=== PATIENT | female | born 1950 | race Caucasian/White ===

== ENCOUNTER 2018-07-24 13:09 | Observation (INO) ==
--- NOTE | 2018-07-24 13:39 | Diag Imaging Result Doc PS360 ---
CT HEAD W/O CONTRAST - 07/24/2018 INDICATION: stroke like symptoms COMPARISON: None FINDINGS: There is an area of old encephalomalacia at the superior left cerebellar hemisphere. No intracranial mass or hemorrhage. There is some very mild periventricular white matter chronic microvascular disease in the cerebral hemispheres, mainly in the parietal lobes. The skull is intact. The sinuses are clear. IMPRESSION: No acute process. This exam was performed using automated exposure control, adjustment of mA or kV according to patient size, and/or use of iterative reconstruction technique Electronically signed by Bryon Cabral 07/24/2018 1:36 PM
[2018-07-24 13:48] LABS: URINE SOURCE CLEAN CATCH
[2018-07-24 13:54] LABS: BILIRUBIN URINE NEGATIVE (NEGATIVE); BLOOD URINE NEGATIVE (NEGATIVE); COLOR YELLOW; GLUCOSE URINE NEGATIVE (NEGATIVE); KETONE URINE NEGATIVE (NEGATIVE); LEUKOCYTES URINE LARGE (NEGATIVE); NITRITE URINE NEGATIVE (NEGATIVE); PH URINE 5.5; PROTEIN URINE NEGATIVE (NEGATIVE); TURBIDITY URINE CLEAR (CLEAR); UROBILINOGEN URINE NORMAL (NORMAL)
[2018-07-24 13:56] LABS: UR EPITHELIAL CELLS <10 /HPF (<10); URINE BACTERIA NEGATIVE /HPF; URINE RBC <10 /HPF (<10); URINE WBC 20-40 /HPF (<10)
[2018-07-24 13:58] LABS: BASO# 0.06 X1000 (0.0-0.2); BASO% 0.7 % (0.0-0.8); EOS% 3.6 % (0.0-10.0); HEMATOCRIT 37.9 % (37.0-47.0); HEMOGLOBIN 13.2 g/dL (12.0-16.0); IMM GRAN# 0.02 X1000 (0.0-0.04); IMM GRAN% 0.2 % (0.0-0.5); LYMPH% 33.9 % (20.5-51.1); MCH 31.7 PG (27-31); MCHC 34.8 g/dL (33-37); MCV 91.1 FL (81-99); MONO# 0.82 X1000 (0.11-0.59); MONO% 9.9 % (1.7-9.3); MPV 10.7 FL (7.4-10.4); NEUT# 4.25 X1000 (1.4-6.5); NEUT% 51.7 % (42.2-75.2); PLT 238 X1000 (130-400); RBC 4.16 XMIL (4.2-5.4); RDW 12.4 % (11.5-14.5); WBC 8.25 X1000 (4.8-10.8)
[2018-07-24 14:12] LABS: INR 0.92; PROTIME 13.1 Seconds (11.0-16.0)
[2018-07-24 14:22] LABS: ALB/GLOB RATIO 1.6; ALBUMIN 3.9 g/dL (3.5-5.0); CALCIUM 8.7 mg/dL (8.8-10.2); POTASSIUM 3.6 mmol/L (3.5-5.1); TOTAL BILIRUBIN 0.19 mg/dL (0.20-1.00); TOTAL PROTEIN 6.3 g/dL (6.3-8.3)
[2018-07-24] MEDS ORDERED: ROCEPHIN 1 GM in NS 50 ML IV ONE (15:07)
--- NOTE | 2018-07-24 15:24 | PROVIDER DOCUMENTATION ---
This chart was entered by Chrissie Oliveros Scribe, acting as scribe for Mando Burden MD. HPI-Neurological Disorder - General Chief Complaint: Stroke-Like Symptoms Stated Complaint: stroke like symptoms Time Seen by Provider: 07/24/18 13:16 Source: patient, EMS Unable to obtain history due to:: urgency Allergies/Adverse Reactions: Patient Allergies Allergy/AdvReac Type Severity Reaction Status Date / Time aspirin AdvReac Verified 07/24/18 15:13 - History of Present Illness-Neuro Nature of Presenting Problem: 67 yowf presents to the ed via ems with c/o acute onset at 1200 noon of dizziness, nausea and BRUSH and per ems pt had mild weakness in rt hand but pt denies this sx. on exam pt is back to baseline and denies all sx Headache Location: reports: global Severity: reports: mild Onset/Duration: reports: this afternoon (1200pm) Timing: reports: gone now Context: denies: impaired speech, facial droop Character of Altered Mental Status: reports: N/A Any recent trauma/injury?: reports: none Character of Deficits: reports: new weakness. denies: altered sensation, vision problem/glaucoma, impaired speech, impaired swallowing New weakness or altered sensation location:: reports: RUE Cognitive Baseline: alert, oriented x3 Gait Baseline: walks without assistance Associated Symptoms: reports: headache, dizziness, nausea, weakness. denies: decreased ability to walk or stand, neck/back pain, fatigue, fever/chills, vomiting, vision changes Similar Symptoms Previously?: No Recently seen or treated by another doctor?: No Review of Systems - Adult - REVIEW OF SYSTEMS - ADULT Constitutional: denies: chills, fever Eyes: denies: blurred vision, double vision Ears, Nose, Mouth & Throat: reports: no symptoms reported Cardiovascular: denies: chest pain, palpitations Respiratory: denies: cough, shortness of breath, wheezing Gastrointestinal: reports: nausea. denies: abdominal pain, diarrhea, vomiting Genitourinary: reports: no symptoms reported Musculoskeletal: reports: muscle weakness (rt hand). denies: back pain, neck pain Integumentary: reports: no symptoms reported Neurological: reports: see HPI, dizziness/vertigo, headache/migraines. denies: ataxia, loss of balance, numbness, paresthesia, seizure, slurred speech, syncope , tremors Psychiatric: reports: no symptoms reported Endocrine: reports: no symptoms reported Hematologic/Lymphatic: reports: no symptoms reported Allergic/Immunologic: reports: no symptoms reported All Other Systems: Reviewed and Negative Past History - Adult - PAST MEDICAL HISTORY-ADULT Review of Records: reports: Old Records Reviewed, Nursing Assessment Review, Medications Reviewed, Social history reviewed & non-contributory. Major Childhood Illnesses: reports: denies history Cardiovascular: reports: HTN Respiratory: reports: COPD Gastrointestinal: reports: GERD Obstetrical/Gynecological: reports: denies history Genitourinary: reports: denies history Musculoskeletal: reports: arthritis, chronic pain, intervertebral disc disease Neurological: reports: denies history Psychiatric: reports: denies history Endocrine/Immune: reports: denies history Other Conditions: reports: denies history - PRIOR SURGERIES/PROCEDURES Surgical/Procedure History: reports: reviewed, not pertinent - IMMUNIZATION STATUS Childhood Immunizations: See Nurse Assessment Flu Vaccine: See Nurse Assessment - FAMILY HISTORY Family History: reviewed, not pertinent - SOCIAL HISTORY Smoking: cigarettes, less than 1 pack/day Provider spent 3-5 mins advising pt. on dangers of tobacco.: Discussed manners to quit use, and f/u contacts for add'l counseling. Substance Use: denies Living Situation: family Physical Exam- Neurological - Physical Exam-Neuro Initial Vital Signs Reviewed: Yes General Appearance: appears well, alert, no apparent distress Eye Exam: bilateral eye: normal inspection, PERRL, EOMI HENMT: normocephalic/atraumatic, moist mucous membranes, normal ENT inspection Head Injury: no evidence of injury Neck: non-tender, full range of motion, supple, normal inspection Respiratory: chest non-tender, lungs clear, normal breath sounds Cardiovascular: normal peripheral pulses, regular rate, rhythm Abdominal Exam: normal bowel sounds, non tender, soft Lymphatic: no adenopathy Extremity: normal range of motion, non-tender, normal gait, normal inspection, no pedal edema, no calf tenderness, normal capillary refill, 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: normal hearing, normal speech, PERRL Coordination/Gait: normal finger to nose, normal gait Motor/Sensory: no motor deficit, no sensory deficit, no pronator drift, negative Babinski's sign 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, grossly normal, no motor/sensory deficits Integumentary: normal color, normal turgor, warm/dry Psych/Mental Status: normal mood/affect, normal thought content, normal thought process, oriented x 3 - Glascow Coma Scale Best Eye Response: (4) open spontaneously Best Verbal Response: (5) oriented Best Motor Response: (6) obeys commands Total Glascow Score: 15 Progress - PLAN OF CARE/RESULTS Progress/Plan/Lab Results: Laboratory Results - last 24 hr 07/24/18 07/24/18 07/24/18 13:20 13:25 13:25 WBC 8.25 RBC 4.16 L Hgb 13.2 Hct 37.9 MCV 91.1 MCH 31.7 H MCHC 34.8 RDW Std Deviation 12.4 Plt Count 238 MPV 10.7 H Immature Gran % (Auto) 0.2 Neut % (Auto) 51.7 Lymph % (Auto) 33.9 [place] % (Auto) 9.9 H Eos % (Auto) 3.6 Baso % (Auto) 0.7 Immature Gran # (Auto) 0.02 Neut # (Auto) 4.25 Lymph # (Auto) 2.80 [place] # (Auto) 0.82 H Eos # (Auto) 0.30 Baso # (Auto) 0.06 PT INR PTT (Actin FS) Sodium 135 L Potassium 3.6 Chloride 103 Carbon Dioxide 23 L Anion Gap 9 BUN 10 Creatinine 1.0 H Estimated GFR/1.73 m2 55 BUN/Creatinine Ratio 10 Glucose 94 Calculated Osmolality 269 Calcium 8.7 L Total Bilirubin 0.19 L AST 12 ALT 8 L Alkaline Phosphatase 76 Total Protein 6.3 Albumin 3.9 Globulin 2.4 Albumin/Globulin Ratio 1.6 Urine Source CLEAN CATCH Urine Color YELLOW Urine Turbidity CLEAR Urine pH 5.5 Ur Specific [place] 1.000 Urine Protein NEGATIVE Ur Glucose (Stick) NEGATIVE Ur Ketones (Stick) NEGATIVE Urine Blood NEGATIVE Urine Nitrite NEGATIVE Urine Bilirubin NEGATIVE Urobilinogen Dipstick NORMAL Urine Leukocytes LARGE A Urine WBC (Auto) 20-40 A Urine RBC (Auto) <10 U Epithel Cells (Auto) <10 Urine Bacteria (Auto) NEGATIVE 07/24/18 13:25 WBC RBC Hgb Hct MCV MCH MCHC RDW Std Deviation Plt Count MPV Immature Gran % (Auto) Neut % (Auto) Lymph % (Auto) [place] % (Auto) Eos % (Auto) Baso % (Auto) Immature Gran # (Auto) Neut # (Auto) Lymph # (Auto) [place] # (Auto) Eos # (Auto) Baso # (Auto) PT 13.1 INR 0.92 PTT (Actin FS) 32.0 Sodium Potassium Chloride Carbon Dioxide Anion Gap BUN Creatinine Estimated GFR/1.73 m2 BUN/Creatinine Ratio Glucose Calculated Osmolality Calcium Total Bilirubin AST ALT Alkaline Phosphatase Total Protein Albumin Globulin Albumin/Globulin Ratio Urine Source Urine Color Urine Turbidity Urine pH Ur Specific [place] Urine Protein Ur Glucose (Stick) Ur Ketones (Stick) Urine Blood Urine Nitrite Urine Bilirubin Urobilinogen Dipstick Urine Leukocytes Urine WBC (Auto) Urine RBC (Auto) U Epithel Cells (Auto) Urine Bacteria (Auto) Orders Category Date Time Status CT HEAD W/O CONTRAST [CT] Stat Exams 07/24/18 13:04 Completed CBC WITH ELECTRONIC DIFF [HEME] Stat Lab 07/24/18 13:25 Completed COMPREHENSIVE METABOLIC PANEL [CHEM] Stat Lab 07/24/18 13:25 Completed PROTIME WITH INR [COAG] Stat Lab 07/24/18 13:25 Completed PTT [COAG] Stat Lab 07/24/18 13:25 Completed UA [URINALYSIS] [URINALYSIS] Stat Lab 07/24/18 13:20 Completed CefTRIAXONE [Rocephin] 1 gm Med 07/24/18 15:07 Active 0.9% Sodium Chloride Inj [Ns] 50 ml IV NOW No TPA given due to all sx resolved. Result Diagrams: 07/24/18 13:25 07/24/18 13:25 - REASSESSMENT Reassessment #1 Time Reassessed: 13:55 Status: improving Reassessment Comment: all sx gone, pt is back to baseline - CT/MRI 1 CT Study: Head Impression: See EMR Report (CT HEAD W/O CONTRAST - 07/24/2018 INDICATION: stroke like symptoms COMPARISON: None FINDINGS: There is an area of old encephalomalacia at the superior left cerebellar hemisphere. No intracranial mass or hemorrhage. There is some very mild periventricular white matter chronic microvascular disease in the cerebral hemispheres, mainly in the parietal lobes. The skull is intact. The sinuses are clear. IMPRESSION: No acute process. This exam was performed using automated exposure control, adjustment of mA or kV according to patient size, and/or use of iterative reconstruction technique Electronically signed by Bryon Cabral 07/24/2018 1: 36 PM 07/24/18 1336 Interpreting Physician: Bryon Cabral MD Dictated Date/Time: 07/24/18 1334 cc: Mando Burden MD;) - CONSULTS/PCP/HOSPITALIST Notification #1 *Consult/PCP/Hospitalist*: hospitalist dr gann Time Discussed: 15:19 Reason/Comments: TIA/UTI Consult Disposition: Admit Departure - Departure Date of Disposition Decision: 07/24/18 Time of Disposition Decision: 15:06 DIAGNOSIS: TIA (transient ischemic attack), Tobacco use disorder UTI (urinary tract infection) Qualifiers: Urinary tract infection type: site unspecified Hematuria presence: without hematuria Qualified Code(s): N39.0 - Urinary tract infection, site not specified Disposition: ADMITTED INPATIENT 09 Certified Medical Emergency: Emergent Condition: Stable Additional Freetext Instructions: ED Follow Up Instructions: You have been treated by a care provider in the Emergency Department. These instructions are being provided to you so you can have an understanding of how to care for yourself upon discharge. Upon discharge from the Emergency Department, you are responsible for making arrangements for follow-up care by a physician of your choice. Take all prescribed medications as directed. Return to the Emergency Department immediately for any new or worsening symptoms. You may call the Physician Referral phone number at [phone] to obtain a list of Physicians who are taking new patients. Referrals and Follow-Ups: None,PCP [Primary Care Provider] - - Critical Care Note This patient required my direct & personal management of CC.: Yes Total Time (mins): 39 Critical Care Statement: This patient required my direct personal management to treat or rule out processes, the absence of which, could potentiallly result in sudden, clinically significant life or limb threatening deterioration. Attestation - Physician/ KODY Attestation Patient care was provided by Advanced Practice Provider:: No The physician spent face to face time with patient:: Yes Advanced Practice Provider documentation review:: Supervising physician onsite and consulted in the evaluation and care of this patient. The physician did have a face to face encounter with the patient. - NIH Stroke Scale NIH Type: Initial Evaluation Level of Consciousness: 0-Alert LOC Questions (ask month and age): 0-Answers Both Correctly LOC Commands (ask to open & close eyes;make a fist, let go): 0-Obeys Both Correctly Best Gaze (horizontal eye movement): 0-Normal Visual (use finger movement, counting or visual threat): 0-No Visual Loss Facial Palsy (show teeth or raise eyebrows & close eyes tght: 0-Symmetrical Movement Motor Function-left arm: 0-Normal Motor Function-right arm: 0-Normal Motor Function-left le-Normal Motor Function-right le-Normal Limb Ataxia(izoube-gggz-mghekg, or heel to michael): 0-No Ataxia Sensory(pin prick to face,arms,trunk,legs-compare side/side): 0-No Ataxia Best Language(name item/read sentence.Ex-Down to Earth): 0-No Aphasia Dysarthria(Pt read words or say words Ex.Mama,Tip-Top,Thanks: 0-Normal Articulation Extinction and Inattention: 0-Normal NIH Total Score: 0 Modified Deandre Score Criteria: 0-no symptoms This chart was documented by the indicated scribe, (Chrissie Oliveros, [place]) and accurately reflects the services I performed and decisions made by me, Mando Burden MD, as attested by the provider's signature.
[2018-07-24] MEDS ORDERED: NORCO-5 PO ONE (15:26)
[2018-07-24] MEDS ORDERED: NICODERM PATCH ONE (15:53)
[2018-07-24] MEDS ORDERED: NS 1,000 ML IV ONE (16:12)
[2018-07-24 17:06] LABS: TSH 2.73 uIUmL (0.27-4.20)
[2018-07-24] MEDS ORDERED: ZOFRAN IV PRN (17:41)
--- NOTE | 2018-07-24 17:59 | HISTORY AND PHYSICAL ---
PRIMARY CARE PHYSICIAN: None. CHIEF COMPLAINT: Dizziness. HISTORY OF PRESENT ILLNESS: Ms. Gallardo is a 67-year-old female with a history of nicotine dependence, gastric ulcer status post gastric perforation requiring surgical repair, medical noncompliance, and marijuana dependence, who presents with acute onset of dizziness, ataxia and blurred vision. This began at around noon. She was sitting on her couch when she began to experience dizziness and double vision. Family there were next to her state that she was very disoriented but not confused. She was not having any slurred speech or having any unilateral weakness. Ambulance was called, and she was brought here. Episode lasted for a total of around 30 minutes. She denies any symptoms currently and denies any recent chest pain or shortness of breath. No nausea or vomiting. No diarrhea. She has chronic abdominal pain secondary to gastric ulcer, and she takes 4 Advil a day for chronic back pain despite having a history of gastric perforation. When she got here, head CT was done, and it did show an area of old encephalomalacia in the superior left cerebral hemisphere. Otherwise, there were no acute issues. She is hemodynamically stable, and her laboratory data is essentially unremarkable. She will be admitted for observation status. PAST MEDICAL HISTORY: 1. Gastric ulcers, status post perforation and surgical repair. 2. Question of old stroke. 3. History of hypertension, untreated. 4. Nicotine dependence. 5. Marijuana dependence. PAST SURGICAL HISTORY: She has had a gastric perforation repair and a D and C. SOCIAL HISTORY: She smokes 2 packs of cigarettes a day. Denies alcohol use. She smokes marijuana about 1 time per week. She denies any other illicit drug use. FAMILY HISTORY: Noncontributory. REVIEW OF SYSTEMS: A 14-point review of systems is obtained and found to be negative with the exception of the HPI. HOME MEDICATIONS: Advil 400 mg p.o. b.i.d. ALLERGIES: Aspirin causes stomach upset. PHYSICAL EXAMINATION: VITAL SIGNS: Blood pressure is 150/70, heart rate 54, respiratory rate is 18, O2 saturation is 96% on room air. Temperature is 98.1. GENERAL: This is a chronically ill, frail, bordering on cachectic appearing 67-year-old female lying in the hospital bed in no acute distress. NEUROLOGICAL: She is awake, alert and oriented. She follows commands without focal deficit. HEENT: Head is atraumatic and normocephalic. Pupils are equal, round and reactive to light. Oral mucosa is moist. NECK: Trachea is midline. There is no JVD or carotid bruit. CHEST: Clear to auscultation. Diminished at the bases. CARDIOVASCULAR: Bradycardic, regular. S1 and S2 noted. There is a 2/6 murmur noted as well. GASTROINTESTINAL: Soft, nondistended and nontender. Bowel sounds are active. EXTREMITIES: No edema. Pulses 1+ bilaterally. DIAGNOSTIC DATA: Head CT shows chronic changes. Nothing acute. Chest x-ray is pending as is an EKG. WBC is 8.25, hemoglobin 13.2, hematocrit 37.9, platelet count 238. INR is 0.92. Sodium is 135, potassium 3.6, chloride 103, CO2 is 23, anion gap 9, BUN is 10, creatinine 1. Glucose 94. Calcium 8.7. Total bilirubin is 0.19, AST is 12, ALT is 8, alkaline phosphatase 76. UA shows large leukocytes and 20 to 40 WBCs. ASSESSMENT AND PLAN: 1. Transient ischemic attack. All symptoms have resolved at this time. However, it should be noted that she is also bradycardic in the 50s and takes no rate blocking medications. We do not have an EKG at this time, and this is pending as is a chest x-ray. Bradycardia could certainly be causing her acute dizziness; however, she denies any chest pain or shortness of breath at this time. She does not have current CK and troponin. This has all been ordered. We will check carotids and echocardiogram. If she has any more symptoms, I would consider an MRI. We will allow for permissive hypertension at this time. She is allergic to aspirin. 2. Bradycardia. Denies any chest pain but no rate blocking medications noted. EKG has not yet been done but has been ordered STAT. We will trend enzymes and check echocardiogram. 3. History of gastric ulcer. Her abdomen exam is benign at this time. She denies any melena or hematochezia. We will make sure she is on b.i.d. omeprazole. 4. Nicotine dependence. Nicotine patch has been prescribed. We will continue daily cessation education. 5. DVT prophylaxis with SCDs. Dictated by MICHAEL Michel for Cheri Carpio MD cc: MICHAEL Michel MD
--- NOTE | 2018-07-24 18:39 | Diag Imaging Result Doc PS360 ---
EXAM: CHEST-PORTABLE - 07/24/2018 HISTORY: TIA TECHNIQUE: Portable chest COMPARISON: 03/28/2011 FINDINGS: Heart size is normal. There are a couple small granulomas from old granulomatous disease which are stable. The lungs otherwise appear essentially clear. There is no consolidation, pleural effusion, or pneumothorax identified. IMPRESSION: No evidence of acute disease. Electronically signed by Jaswant Olivares 07/24/2018 6:37 PM
[2018-07-24] MEDS: DUONEB (A & A) INH SCH ×2 (19:45→23:35)
[2018-07-24] MEDS: PRILOSEC PO SCH (21:32)
[2018-07-24] MEDS: TYLENOL PO PRN (21:33)
[2018-07-25] MEDS: DUONEB (A & A) INH SCH ×6 (02:50→23:35)
[2018-07-25 05:06] LABS: HEMATOCRIT 40.4 % (37.0-47.0); HEMOGLOBIN 13.8 g/dL (12.0-16.0); MCH 31.3 PG (27-31); MCHC 34.2 g/dL (33-37); MCV 91.6 FL (81-99); MPV 10.3 FL (7.4-10.4); RBC 4.41 XMIL (4.2-5.4); RDW 12.7 % (11.5-14.5); WBC 7.65 X1000 (4.8-10.8)
[2018-07-25 05:26] LABS: POTASSIUM 3.9 mmol/L (3.5-5.1)
[2018-07-25 05:27] LABS: HEMOGLOBIN A1C 5.2 % (4.8-6.0)
[2018-07-25] MEDS: PRILOSEC PO SCH ×2 (06:30→21:24)
[2018-07-25] MEDS: NORCO-5 PO PRN ×3 (06:41→16:38)
--- NOTE | 2018-07-25 08:04 | EKG Report ---
Test Performed on : 07/24/2018 5:23:39 PM Test Reason : TIA Blood Pressure : / mmHG Vent. Rate : 051 BPM Atrial Rate : 051 BPM P-R Int : 190 ms QRS Dur : 088 ms QT Int : 454 ms P-R-T Axes : 061 041 066 degrees QTc Int : 418 ms Sinus bradycardia. Otherwise normal ECG When compared with ECG of 28-MAR-2011 10:42, Vent. rate has decreased BY 31 BPM Unconfirmed Result
--- NOTE | 2018-07-25 08:43 | EKG Report ---
Test Performed on : 07/25/2018 08:13:04 AM Test Reason : bradycardia Blood Pressure : / mmHG Vent. Rate : 058 BPM Atrial Rate : 058 BPM P-R Int : 168 ms QRS Dur : 082 ms QT Int : 442 ms P-R-T Axes : 054 029 066 degrees QTc Int : 433 ms Sinus bradycardia. Otherwise normal ECG When compared with ECG of 24-JUL-2018 17:23, (Unconfirmed) No significant change was found Unconfirmed Result
[2018-07-25] MEDS: FOLIC ACID PO SCH (09:20)
--- NOTE | 2018-07-25 10:20 | ECHO REPORT ---
ORDER DATE: 07/24/2018 INDICATION: Hypertension, COPD, reflux, TIA, dizziness. FINDINGS: 1. The right atrium appears normal in size at 3.4 cm. 2. Mild tricuspid regurgitation. The RV systolic pressure is 34. 3. Normal RV size and systolic function. 4. No significant pulmonic insufficiency. 5. Normal left atrial size with a volume index of 21. 6. No mitral valve prolapse. Mild mitral regurgitation. 7. Normal LV size, end-diastolic dimension of 4.7. Normal wall thicknesses with a posterior and interventricular septal wall thickness of 1.1 cm each. Normal LV systolic function. The estimated EF is 55 to 60 percent with normal wall motion. 8. Aortic valve opens well. There is trace insufficiency. No stenosis. 9. Aorta appears normal in visualized segments. 10. No pericardial effusion seen. cc: MD Filiberto Toledo CRNP
--- NOTE | 2018-07-25 13:50 | Diag Imaging Result Doc PS360 ---
EXAM: CT THORACIC SPINE W/O CONTRAST 07/25/2018 HISTORY: severe back pain TECHNIQUE: This exam was performed using automated exposure control, adjustment of mA or kV according to patient size, and/or use of iterative reconstruction technique. COMMENT: There are mild degenerative disc changes throughout the thoracic spine particularly at the C7-T1 level where there is posterior osteophyte formation. There is no evidence of spinal stenosis fracture or subluxation. There is some curvature in the upper thoracic spine with convexity to the left. There is apparent bilateral foraminal stenosis at the T1-2 level worse on the right than the left. Otherwise there is no evidence of significant foraminal stenosis. IMPRESSION: No acute bony abnormalities. Mild degenerative disc changes. Bilateral foraminal stenosis at T1-2. Electronically signed by Sahil Fragoso 07/25/2018 1:48 PM
--- NOTE | 2018-07-25 14:00 | Diag Imaging Result Doc PS360 ---
EXAM: CT THORAX W/O CONTRAST 07/25/2018 HISTORY: copd/heavy smoker TECHNIQUE: This exam was performed using automated exposure control, adjustment of mA or kV according to patient size, and/or use of iterative reconstruction technique. COMMENT: The current examination is compared with the previous study of 07/04/2010. There is extensive emphysematous change particularly in the subpleural zones in the upper lobes. There are some scattered granulomata some of which are associated with focal emphysematous change in the right lower lobe. There are calcified subcarinal and bilateral hilar nodes as well as some calcifications in the paratracheal nodes. There is no evidence of abnormal fluid collection or acute pulmonary parenchymal disease. There are numerous granulomata in the spleen. There are degenerative changes in the lower cervical spine and to a lesser extent in the thoracic spine. IMPRESSION: Granulomatous changes and COPD. Electronically signed by Sahil Fragoso 07/25/2018 1:58 PM
--- NOTE | 2018-07-25 14:10 | Diag Imaging Result Doc PS360 ---
EXAM: CT LUMBAR SPINE W/O CONTRAST 07/25/2018 HISTORY: severe back pain TECHNIQUE: This exam was performed using automated exposure control, adjustment of mA or kV according to patient size, and/or use of iterative reconstruction technique. COMMENT: Note is made of a abdominal aortic aneurysm which just above the bifurcation measures 2.8 cm in AP dimension. There is no evidence of acute fracture or subluxation. At the T12-L1 level there is no spinal or foraminal stenosis. At the L1-2 level there is some vacuum disc phenomenon with narrowing of the disc space. There is no evidence of spinal or foraminal stenosis. At L2-3 there is some central disc bulge as well as vacuum disc phenomenon and anterior osteophyte formation. No evidence of spinal or foraminal stenosis is present. At the L3-4 level there is some disc bulge without evidence of spinal or foraminal stenosis. At L4-5 there is vacuum disc phenomenon and disc bulge which together with some ligamentum flavum hypertrophy produces a mild degree of spinal stenosis. There may be some mild foraminal stenosis particularly on the right. At L5-S1 the disc spaces fairly well preserved and there is no evidence of spinal or foraminal stenosis. IMPRESSION: Mild degenerative changes particularly at the L4-5 level where there is a mild degree of spinal stenosis and right foraminal stenosis. Electronically signed by Sahil Fragoso 07/25/2018 2:08 PM
--- NOTE | 2018-07-25 14:21 | Diag Imaging Result Doc PS360 ---
EXAM: MRI BRAIN W/O CONTRAST 07/25/2018 HISTORY: stroke like symptoms TECHNIQUE: T1 sagittal and axial, axial T2, FLAIR, DWI and coronal gradient echo. COMMENT: There are numerous small foci of increased T2-weighted signal intensity in the subcortical and periventricular white matter of both hemispheres. There are similar abnormalities present in the cerebellum on both sides particularly inferior to the middle cerebellar peduncle and in the anterior medial cerebellar cortex on the right. There is no evidence of bleed or abnormal extra-axial fluid collection. There is restricted diffusion in the inferomedial anterior right cerebellar hemisphere and in smaller foci within the upper portion of the right cerebellar hemisphere. There is no evidence of bleed or abnormal extra-axial fluid collection. IMPRESSION: Multiple acute or subacute lesions within the right cerebellar hemisphere in the territories of the anterior inferior and superior cerebellar arteries. Chronic ischemic microvascular changes in the cerebrum as described. The findings were discussed with Cheri Carpio MD at 07/25/2018 2:18 PM. Electronically signed by Sahil Fragoso 07/25/2018 2:19 PM
[2018-07-25] MEDS ORDERED: PLAVIX PO ONE (14:29)
--- NOTE | 2018-07-25 15:11 | Diag Imaging Result Doc PS360 ---
EXAM: CT CERVICAL SPINE W/O CONTRAST INDICATION: severe neck pain TECHNIQUE: This exam was performed using automated exposure control, adjustment of mA or kV according to patient size, and/or use of iterative reconstruction technique. COMPARISON: None. FINDINGS: There is extensive multilevel facet arthropathy throughout the cervical spine. This is seen at virtually every level. There is also multilevel moderate to severe degenerative disc disease with disc space narrowing and marginal osteophyte formation, worst at and below the C5-6 level. There is fairly mild bony central canal narrowing and there is moderate to severe multilevel bony neuroforaminal narrowing at multiple levels. It is probably most significant at C5-6 where there is fairly severe foraminal stenosis. Otherwise, there is no discrete fracture, subluxation, or significant intrinsic osseous lesion. There is fibrosis and COPD changes at the lung apices. Surrounding soft tissues are essentially unremarkable, otherwise. IMPRESSION: Advanced multilevel degenerative arthropathy throughout the cervical spine. No evidence of fracture or other definite acute C-spine injury. Electronically signed by William Moeller 07/25/2018 3:09 PM
--- NOTE | 2018-07-25 15:50 | PROGRESS NOTE ---
DATE: 07/25/2018 SUBJECTIVE: The patient states that she feels a lot better today. She has had no further episodes of numbness or tingling or weakness in her extremities. OBJECTIVE: Vital Signs: Temperature 97.8 degrees, blood pressure 159/78, heart rate 63, respirations 16, and O2 saturations 100% on room air. General: This is a chronically ill- appearing elderly female sitting in bed in no acute distress. Heart: S1, S2 normal. Regular rate and rhythm. Lungs: Equal air entry bilaterally. No wheezing. No rales. Abdomen: Positive bowel sounds. Soft, nontender, and nondistended. Extremities: No edema. No cyanosis. Neurologic: The patient is alert and oriented x4. No focal neurologic deficits noted. LABORATORY: Sodium 143, potassium 3.9, chloride 107, CO2 24, BUN 9, creatinine 1, glucose 113, triglycerides 425, cholesterol 268, and HDL 24. ASSESSMENT AND PLAN: 1. Acute cerebellar hemispheric stroke. We will start the patient on an antiplatelet plus Lipitor. We will await the results of the carotid duplex study. The echocardiogram is unremarkable. We will also consult with the neurologist. 2. Hyperlipidemia. The patient has been started on Lipitor. She has also been encouraged to quit smoking. 3. Tobacco dependence. The patient has been counseled about smoking cessation. 4. Chronic obstructive pulmonary disease. Stable. The patient does not require supplemental oxygen. 5. Chronic back pain. Aware. The patient reports that she uses ibuprofen daily. She has been advised not to continue with this method of pain control. 6. Folate deficiency. The patient is on folic acid. 7. Chest pain. The patient reports that she has been having episodes of chest pain for the last several weeks. Her cardiac enzymes are negative. We will consult Cardiology for further recommendations given the patient's risk factors. cc: Cheri Carpio MD
[2018-07-25] MEDS: TYLENOL PO PRN (16:39)
--- NOTE | 2018-07-25 17:37 | CONSULTATION ---
DATE OF CONSULTATION: 07/25/2018 IMPRESSION: 1. Transient dizziness and dysequilibrium with some lightheadedness as well. The patient has been found to have transient ischemic attack, with abnormal brain MRI indicating multiple acute or subacute lesions within the right cerebellar hemisphere in the territories of the anterior, inferior and superior cerebellar arteries. There are chronic ischemic microvascular changes in the cerebrum as described also reported. 2. Hypertension. 3. Chronic cigarette use. 4. Hyperlipidemia. RECOMMENDATIONS: 1. Agree with antiplatelet regimen Plavix, as the patient has poor tolerance of aspirin. 2. Consider use of angiotensin receptor blocking agent for blood pressure. 3. Initiate statin therapy. 4. Smoking cessation strongly advised. HISTORY: This 67-year-old white female with past history of hypertension, peptic ulcer disease and chronic cigarette use was admitted after episode of dysequilibrium and blurred vision. She actually believes she had diplopia. Symptoms occurred late morning. She became quite apprehensive and then started experience some mild palpitations or pounding in the chest. There was no chest pain. Symptoms resolved after about 30 minutes. She has been found to have evidence of ischemic change on brain MRI involving the cerebellum. Her medical care over the past several years has been somewhat inconsistent. There have been times where she was noted to be hypertensive. She is not on any antihypertensive medications. She is not aware of any previous cardiac problems. She does have history of perforated gastric ulcer requiring surgical repair in the past. She takes a fair amount of ibuprofen because of chronic back pain. There is no history of syncope. PAST MEDICAL HISTORY: 1. Hypertension at times. 2. Gastric ulcer, resulting in perforation and requirement for surgical repair. 3. Chronic cigarette use. 4. Marijuana use. PAST SURGICAL HISTORY: Includes surgical repair of gastric perforation due to ulcer disease and previous D and C. ALLERGIES: She is allergic or intolerant to aspirin, which causes gastric upset. MEDICATIONS: Prior to admission as listed. SOCIAL HISTORY: She smokes 2 packs of cigarettes per day. She does not use alcohol. She smokes marijuana perhaps once a week, and adds that this tends to help her with her back discomfort. FAMILY HISTORY: Negative for premature coronary disease. REVIEW OF SYSTEMS: Pulmonary: Negative. Gastrointestinal: Negative. Constitutional: Negative. Remainder of review of systems negative/noncontributory, with 14 total systems reviewed. PHYSICAL EXAMINATION: This is an older white female in no distress. The patient appears older than stated age. Blood pressure 159/78, heart rate 63, oxygen saturation 100% on room air. HEENT exam: Extraocular movements appear intact. Mucous membranes are moist. Neck is supple without jugular venous distention. There are no carotid bruits. Chest is clear to auscultation bilaterally. Cardiac exam reveals a regular rate and rhythm without appreciable murmur, rub or gallop. Abdomen is soft. Bowel sounds normal. Extremities are without edema. Neurologic reveals her to be alert and fully oriented. Speech is fluent. She moves all 4 extremities equally well. Skin is warm and dry. Psychiatric exam reveals her mood to be appropriate. DIAGNOSTIC DATA: Twelve-lead EKG demonstrates sinus bradycardia but was otherwise within normal limits. LABORATORY DATA: Includes a white blood cell count of 7.65, hematocrit 40.4, hemoglobin 13.8, platelet count 250,000. Sodium 143, potassium 3.9, chloride 107, carbon dioxide 24, BUN 9, creatinine 1.0, glucose 113. Triglycerides 425, total cholesterol 268, LDL cholesterol 197, HDL cholesterol 24. TSH 2.73. Initial troponin T less than 0.01. Followup troponin T less than 0.01. Initial CPK 67. Followup CPK 65. cc: Ken Victor MD
[2018-07-25] MEDS ORDERED: LIPITOR PO SCH (21:00)
[2018-07-26] MEDS: PRILOSEC PO SCH ×2 (06:37→07:00)
[2018-07-26] MEDS: DUONEB (A & A) INH SCH ×3 (06:39→11:34)
[2018-07-26] MEDS ORDERED: NORCO-7.5 PO PRN (08:06)
[2018-07-26 08:37] LABS: AGAP 11; BUN 10 mg/dL (8-22); CHLORIDE 104 mmol/L (98-107); COSMO 277; CREATININE 0.9 mg/dL (0.5-0.9); ESTIMATED GFR > 60; GLUCOSE 100 mg/dL (70-104); POTASSIUM 4.5 mmol/L (3.5-5.1); SODIUM 139 mmol/L (136-145); TCO2 24 mmol/L (25-35)
[2018-07-26] MEDS: FOLIC ACID PO SCH (08:54)
[2018-07-26] MEDS ORDERED: NORCO-7.5 ONE (08:58)
[2018-07-26] MEDS ORDERED: PLAVIX PO SCH (09:00)
--- NOTE | 2018-07-26 11:24 | CONSULTATION ---
DATE OF CONSULTATION: 07/26/2018 Ms. Gallardo is almost 68 years old. It sounds like she had stroke with cerebellar features. She felt well at midday yesterday, stood up and took care of her dog and while standing she suddenly became dizzy, unsteady on her feet with a sense that she would fall. She did not fall. She felt clumsy in all limbs but thought she might have been more clumsy on the right. She had some headache. Vision was disturbed, hard for her to describe precisely. Vision seemed to jump around and be blurred, and possibly double briefly. She did not cover one eye and she did not check gaze in one direction compared to another. Family noted slightly slurred speech. She did not notice trouble chewing or swallowing. She was nauseated but did not vomit. She presented to the hospital. Noncontrast CT was unremarkable. Brain MRI without contrast shows evidence of right cerebellar infarction. Lab work has been unremarkable. Systolic blood pressures have ranged 130s to 180s. Heart rate has ranged 50s to 80s. Total cholesterol was 268 and triglycerides 425. She has chronic back pain. She attributes her high blood pressure to back pain. CT scan of the cervical, thoracic, and lumbar spine showed diffuse degenerative changes. She reports an episode of fainting and collapse about 10 years ago and that was attributed to high blood pressure, by her report. That has not recurred. There is no history of previous diagnosed stroke. She smokes cigarettes. On exam, she is awake, alert, attentive, oriented, appropriate. Speech is not dysarthric. Language function is intact. Memory is good. Head and neck are unremarkable. Visual gracia are full tested grossly. Extraocular movements are full. Facial motility is symmetric. Tongue is midline. Gag is intact. Palate elevates in the midline. Shoulder shrug is equal. Strength is normal in the arms and legs. She did well on [id number] testing bilaterally. She had very slight difficulty with right [id number]. She did well with left [id number]. I did not test her gait. Plantar response is silent bilaterally. Reflexes are trace at the ankles and 1+ symmetrically at the wrists. She reports good pinprick appreciation over the limbs. IMPRESSION: Imaging evidence of right cerebellar infarction, minimal right leg ataxia on exam, no other apparent residual deficit. She has made significant recovery at this point. I expect she will continue to improve spontaneously. I do not have any urgent suggestion from a neurologic standpoint regarding further workup. I believe carotid ultrasound has been ordered and may have been done, but I do not have the report. I strongly encouraged her to quit smoking cigarettes. We discussed her other risk factors and I think she should continue treating cholesterol, continue clopidogrel (there may be a history of aspirin and nonsteroidal intolerance with mostly dyspepsia). We discussed treating blood pressure cautiously at this point one day after apparent ischemic stroke, but I believe she will need eventually to have her blood pressure treated aggressively. I encouraged her to become established with a primary clinic. Thanks for asking neurology to see Ms. Gallardo. I will be glad to see her again inpatient or outpatient, if needed. cc: Tammy Washington III, MD MTDD
[2018-07-26 12:11] VITALS: BP 162/70
--- NOTE | 2018-07-27 12:21 | DISCHARGE SUMMARY ---
ADMISSION DATE: 07/24/2018 DISCHARGE DATE: 07/26/2018 FINAL DISCHARGE DIAGNOSES: 1. Acute cerebellar hemispheric stroke. 2. Hypertension. 3. Hyperlipidemia. 4. Tobacco dependence. 5. Chronic obstructive pulmonary disease. 6. Folate deficiency. 7. Bilateral foraminal stenosis. CONSULTATIONS REQUESTED DURING THIS HOSPITAL STAY: 1. Cardiology consultation. 2. Neurology consultation. HOSPITAL COURSE: Ms Gallardo is a 67-year-old female with a history of COPD and heavy tobacco dependence, who presented to the ER after having near syncopal episode as well as stroke-like symptoms. In the ER, a head CT was done that was noted to be unremarkable. The patient was admitted for a stroke workup. An echocardiogram was done that revealed an ejection fraction of 60%. Neurology as well as Cardiology were consulted. The patient underwent an MRI of the brain that revealed multiple acute right cerebellar hemispheric infarcts. The patient was started on Plavix due to an allergy to aspirin. Also Lipitor was added to the patient's regimen. The patient was advised extensively to quit smoking cigarettes. The patient also had a CT of the chest done that revealed emphysema with chronic obstructive pulmonary disease. The patient was noted to be deficient in folate and so folic acid was also added to the patient's regimen. The patient was seen by both the neurologist and site leader, and cleared for discharge home on 07/26/2018. DISCHARGE MEDICATIONS: 1. Folic Acid 0.4 mg p.o. daily. 2. Omeprazole 40 mg p.o. daily. 3. Plavix 75 mg p.o. daily. 4. Lipitor 40 mg p.o. at bedtime. 5. Coreg 12.5 mg p.o. twice a day. 6. Ravenel 7.5/325 one tab oral every 6 hours p.r.n. for pain. DISCHARGE DIET: Low-sodium diet. Low-cholesterol diet. ACTIVITY: As tolerated. FOLLOWUP INSTRUCTIONS: The patient will need to follow up with Dr. Victor as scheduled by his clinic. The patient will also follow up with Dr. Washington as scheduled by his clinic. cc: Cheri Carpio MD
--- NOTE | 2018-07-27 14:55 | Carotid Study ---
DATE: 07/24/2018 PROCEDURE: Carotid duplex imaging. REFERRING PHYSICIAN: Bertram from the emergency department. INTERPRETING PHYSICIAN: Dr. Oliveros TECH: Vandana Early RVT INDICATIONS: Transient ischemic attack. OBSERVED DATA RIGHT LEFT Brachial Blood Pressure Carotid Pulse Bruits: Carotid/Sub DIAGRAM OF ULTRASOUND IMAGING R L RIGHT INT EXT INT EXT LEFT Poli (cm/s) Poli (cm/s) Subclavian 163/0 Subclavian 89/0 CCA Proximal 61/17 CCA Proximal 69/16 CCA Distal 57/21 CCA Distal 79/20 Bulb 55/19 Bulb 62/18 ICA Proximal 61/15 ICA Proximal 42/14 ICA Mid 84/31 ICA Mid 80/30 ICA Distal 74/27 ICA Distal 80/26 ECA 88/12 ECA 84/11 Vertebral 66/22 Vertebral 55/18 ICA/CCA Ratio 1.36 ICA/CCA Ratio 1.02 % Stenosis 0 to 39 % Stenosis 0 to 39 PHYSICIAN INTERPRETATION: Mild atherosclerotic disease of the distal common and internal carotid arteries bilaterally without evidence of a hemodynamically significant lesion in either carotid system. cc: MD Filiberto Choe CRNP
== END 2018-07-26 14:37 | disposition home or self-care (01) ==
LOC: ED 13:09 → 3N 13:09
PROVIDERS: ATTEND Internal Medicine
CPT/HCPCS: 70450; 70551; 71010; 71045; 71250; 72125; 72128; 72131; 80048; 80053; 80061; 81001; 82550; 82607; 82746; 83036; 83721; 83735; 84439; 84443; 84484; 85025; 85027; 85610; 85730; 93005; 93010; 93306; 93880; 94640; 94761; 96365; 99285; A9270; J0696; J7030